=== PATIENT | male | born 1955 | race Caucasian/White ===

== ENCOUNTER 2021-05-18 08:38 | Day surgery (SDC) | payer OTHER ==
[~2021-05-18] VITALS: Ht 175.3 cm; Wt 91.6 kg
--- NOTE | ~2021-05-18 | OP ---
PATIENT NAME: TREMAYNE JACKSON MEDICAL RECORD: [id number] :57 LOCATION:D[facility] ADMISSION DATE: SURGEON: ASA MERA MD DATE OF OPERATION: 05/18/2021 PREOPERATIVE DIAGNOSIS: Low midline back abscess. POSTOPERATIVE DIAGNOSIS: Low midline back abscess. PROCEDURE: Excision of low midline back abscess. The wound was left open. The area excised included skin and subcutaneous tissue and perhaps portions of a sebaceous cyst. The dimensions of the excision 4.1 cm in cephalocaudad dimension and 2.1 cm in the lateral dimension. SURGEON: Asa Mera MD SPLITTING MACHINE TENDER: None. BLOOD LOSS: Less than 25 cc. ANESTHESIA: General. COMPLICATIONS: None. The patient has undergone incision and drainage [facility]. The patient is here for a more aggressive debridement. I saw the patient in the outpatient department. The risks, possible complications, and alternatives to the procedure were explained to the patient. He elected to proceed. The discussion specifically included, but was not limited to, bleeding requiring emergency reoperation, recurrence of infection, recurrence of any cystic structure that might be present as well as nonhealing of the wound. The patient has a tattoo and the abscess is within the tattoo, I told him that unfortunately this is going to make the tattoo cosmetically less appealing. OPERATIVE COURSE: The patient was conveyed to the operating room electively on 05/18/2021. General anesthesia was induced by the anesthesia staff. The patient was positioned prone. The back was sterilely prepped and draped. Through the use of double curvilinear incisions with the long axis in the cephalad caudad direction, I excised the skin and subcutaneous tissue around the open wound including undermining the open wound, so that all dimensions were at least grossly free of any infection. Some additional material at the base of the wound was excised in a piecemeal fashion. I irrigated with hydrogen peroxide. Meticulous hemostasis was achieved with electrocautery. The wound was packed with Dakin's soaked Kerlix and then a dry dressing on top of this. The patient should likely undergo daily saline wet-to-dry dressing changes. There is no need for the patient to see me in the office unless he develops a complication related to this operative procedure. If I need to see him in followup, I could see him out on one of my GI clinic days at the [facility]. TRANSINT:[id number] Voice Confirmation ID: [id number] DOCUMENT ID: [id number] cc: Janel Hernandez APN at [facility] OPERATIVE REPORT [id number] TREMAYNE JACKSON ROBERT MD CC: [id number] DICTATION DATE: 05/18/211850 BOTTOM CAGER: 05/18/212028 [facility] [place] 05/18/21 [place] [id number] [place] [id number]
[2021-05-18 10:42] LABS: BASOPHILS 1.5 % (0-2); EOSINOPHILS 1.7 % (0-7); HEMATOCRIT 35.1 % (42.0-54.0); HEMOGLOBIN 11.8 g/dL (13.5-17.5); LYMPHOCYTES 30.2 % (15-50); MCHC 33.8 g/dL (31.0-37.0); MCV 85.9 fL (80.0-100.0); MEAN PLATELET VOLUME 7.2 fL (7.4-10.4); MONOCYTES 11.4 % (2-11); NEUTROPHILS 55.2 % (40-80); PLATELET COUNT 302 10x3/uL (130-400); RBC 4.08 10x6/uL (4.20-6.10); RDW 13.2 % (11.5-14.5); WBC 7.7 10x3/uL (4.8-10.8)
[2021-05-18] MEDS ORDERED: CLEOCIN HCL150 MG PO (10:46)
[2021-05-18] MEDS ORDERED: VASOTEC20 MG PO (10:46)
[2021-05-18] MEDS ORDERED: CEPHALEXIN500 M1 PO (10:46)
[2021-05-18] MEDS ORDERED: GLIPIZIDE10 MG PO (10:46)
[2021-05-18 10:47] LABS: CALC OSMOLALITY 286 mosm/kg (275-300); CALCIUM 9.2 mg/dL (8.5-10.1); CARBON DIOXIDE 26.1 mmol/L (21.0-32.0); CHLORIDE - SERUM 101 mmol/L (98-107); CREATININE - SERUM 0.9 mg/dL (0.6-1.3); GLUCOSE 355 mg/dL (74-106); POTASSIUM - SERUM 4.1 mmol/L (3.5-5.1); SODIUM 136 mmol/L (136-145); UREA NITROGEN 16 mg/dL (7-18); eGFR NON AFRICAN AMERICAN 90 mL/min (90-120)
[2021-05-18] MEDS ORDERED: HYDROCHLOROTH12.5 M1 PO (10:47)
[2021-05-18] MEDS ORDERED: IBUPROFEN600 MG PO (10:47)
[2021-05-18] MEDS ORDERED: ZOCOR20 MG PO (10:47)
[2021-05-18] MEDS ORDERED: GLUCOPHAGE1000 MG PO (10:47)
[2021-05-18 11:11] VITALS: BP 149/77; Ht 175.3 cm; Wt 91.6 kg
--- NOTE | 2021-05-18 15:37 | HP ---
PATIENT: TREMAYNE JACKSON MEDICAL RECORD: [id number] ACCOUNT: [id number] LOCATION:[facility] : 57 ADMISSION DATE: 05/18/21 PCP: No PCP HISTORY AND PHYSICAL EXAMINATION HISTORY OF PRESENT ILLNESS: The patient has an abscess of the lower midline back. He has been on antibiotics and it has been partially debrided. I am going to plan for a complete debridement here in the operating room. I told the patient likely it will have to heal by secondary intention. He says that it has not bothered him before. The risks, possible complications, alternatives of the procedure were explained to the patient. He elects to proceed. MEDICATIONS AT THE [facility]: Have been reviewed. ALLERGIES: No known drug allergies. SOCIAL HISTORY: Nonsmoker. PAST MEDICAL AND SURGICAL HISTORY: Hypertension; diabetes, non-insulin dependent; hyperlipidemia; history of tuberculosis in the past. PHYSICAL EXAMINATION: GENERAL: The patient does not appear acutely ill. He does appear chronically ill. VITAL SIGNS: Reviewed. EARS: External ears appear normal. EYES: Extraocular movements are intact. NECK: Trachea is midline. CHEST: No intercostal retractions. PULMONARY: Nonlabored. No stridor. IMPRESSION: Back abscess. PLAN: Excisional debridement in the operating room. TRANSINT:[id number] Voice Confirmation ID: [id number] DOCUMENT ID: [id number] cc: Lilo Hernandez APN at [facility] DENICE MERA MD at 1537 CC: [id number] DICTATION DATE: 05/18/21 1417 INDUSTRIAL PSYCHOLOGIST: 05/18/21 1428 [facility] [address] [place] [address]
--- NOTE | 2021-05-18 18:33 | NUR ---
1715 - IV D/C'D WITH TIP INTACT. UP TO BATHROOM TO VOID AND DRESS FOR DISCHARGE. DISCHARGE INSTRUCTIONS GIVEN. GUARDS PROVIDED WITH COPIES OF PERTINENT LAB WORK AND MEDICATION LIST.
--- NOTE | 2021-05-18 18:34 | NUR ---
1745 - PATIENT DISCHARGED VIA WHEELCHAIR TO [facility].
== END 2021-05-18 17:45 | disposition home or self-care (01) ==
LOC: D.OPS 08:38
PROVIDERS: Anesthesiology; ATTEND Surgery
DX: L02.212 Cutaneous abscess of back [any part, except buttock and flank] (principal)